=== PATIENT | female | born 1990 ===

== ENCOUNTER → 2020-03-04 | Outpatient (CLI) | payer BC | END | disposition home or self-care (01) | LOC: PLD 11:34 → LAB SHORT 11:34 | DX: D22.4 Melanocytic nevi of scalp and neck (principal) | CPT/HCPCS: 88305 ==

== ENCOUNTER → 2022-08-10 | Outpatient (CLI) | payer BC | LOC: LAB SHORT 13:32 → PLD 13:32 | DX: D48.5 Neoplasm of uncertain behavior of skin (principal) | CPT/HCPCS: 88305 ==